=== PATIENT | female | born 1995 | race Caucasian/White ===

== ENCOUNTER 2024-05-30 05:14 | Emergency (ER) | payer BC ==
[2024-05-30] MEDS: Metoclopramide 10 MG/2 ML SDV IVPUSH ONE (05:53)
[2024-05-30] MEDS: Dextrose 5%-0.9% NaCl 1,000 ML IV SCH (05:53)
[2024-05-30] MEDS: HYDROmorphone 0.5 MG/0.5 ML Syringe IVPUSH ONE (05:54)
[2024-05-30] MEDS: Ketorolac 30 MG/ML SDV IVPUSH ONE (05:54)
[2024-05-30] MEDS ORDERED: Sodium Chloride 0.9% 1,000 ML IV SCH (06:00)
[2024-05-30 06:08] LABS: BASOPHILS PERCENT AUTO 0.4 % (0.0-1.0); EOSINOPHILS ABSOLUTE AUTO 0.1 K/mm3 (0.0-0.4); EOSINOPHILS PERCENT AUTO 1.9 % (0.0-6.0); HEMATOCRIT 44.5 % (37.0-47.0); HEMOGLOBIN 15.4 gm/dl (12.0-16.0); LYMPHOCYTES ABSOLUTE AUTO 3.2 K/mm3 (1.0-4.8); LYMPHOCYTES PERCENT AUTO 61.1 % (24.0-44.0); MEAN CORPUSCULAR HEMOGLOBIN 32.2 pg (28.0-32.0); MEAN CORPUSCULAR HGB CONC 34.6 g/dl (32.0-36.0); MEAN CORPUSCULAR VOLUME 93.1 fl (83.0-99.0); MEAN PLATELET VOLUME 9.1 fl (9.4-12.3); MONOCYTES ABSOLUTE AUTO 0.4 K/mm3 (0.0-0.8); MONOCYTES PERCENT AUTO 7.4 % (0.0-8.0); NEUTROPHILS ABSOLUTE AUTO 1.6 K/mm3 (1.8-7.7); NEUTROPHILS PERCENT AUTO 29.2 % (41.0-71.0); PLATELET COUNT,PLT 118 K/mm3 (150-400); RED BLOOD CELL COUNT 4.78 M/mm3 (4.10-5.30)
[2024-05-30 06:12] LABS: APPEARANCE,URINE SLT CLOUDY (Clear); BILIRUBIN,URINE NEGATIVE (Negative); COLOR,URINE YELLOW (Yellow); GLUCOSE,URINE NEGATIVE (Negative); KETONES,URINE NEGATIVE (Negative); LEUKOCYTE ESTERASE,URINE TRACE (Negative); NITRITE,URINE NEGATIVE (Negative); OCCULT BLOOD,URINE 1+ (Negative); PROTEIN,URINE 1+ (Negative); UROBILINOGEN,URINE 0.2 (0.2-1.0)
[2024-05-30 06:31] LABS: EPITHELIAL CELLS,URINE 0-5 /hpf (0-5)
[2024-05-30 06:32] LABS: BACTERIA,URINE MANY /hpf (FEW); MUCUS,URINE RARE /hpf (FEW)
[2024-05-30] MEDS: Linezolid 600 MG in Premix Bag 1 BAG IV ONE (06:57)
[2024-05-30 07:08] LABS: A/G RATIO 1.1 (1-2); ALBUMIN 4.5 g/dl (3.4-5.0); BILIRUBIN TOTAL 0.6 mg/dL (0.2-1.0); BUN/CREATININE RATIO 12.2 (14-18); C-REACTIVE PROTEIN 0.05 mg/dL (<0.30); CALCIUM 9.1 mg/dL (8.5-10.1); CREATININE 0.9 mg/dL (0.55-1.02); EST CRCL DRUG DOSING (CG) 78.36 mL/min; PROTEIN TOTAL,TP 8.8 g/dl (6.4-8.2)
== END 2024-05-30 08:10 | disposition home or self-care (01) ==
LOC: JD.ED 05:14
DX: O23.43 Unspecified infection of urinary tract in pregnancy, third trimester (principal); O26.833 Pregnancy related renal disease, third trimester; N20.0 Calculus of kidney; Z88.0 Allergy status to penicillin; Z88.5 Allergy status to narcotic agent; Z3A.35 35 weeks gestation of pregnancy
CPT/HCPCS: 36415; 74176; 74176-26; 80053; 81001; 83036; 84703; 85025; 86140; 87086; 96361; 96365; 96375; 99285-25; J1885; J2020; J2765; J7042

== ENCOUNTER 2024-07-27 00:30 | Observation (INO) | payer BC ==
[2024-07-27 02:38] LABS: BASOPHILS PERCENT AUTO 0.4 % (0.0-1.0); EOSINOPHILS ABSOLUTE AUTO 0.2 K/mm3 (0.0-0.4); EOSINOPHILS PERCENT AUTO 2.6 % (0.0-6.0); HEMATOCRIT 39.9 % (37.0-47.0); HEMOGLOBIN 13.6 gm/dl (12.0-16.0); IMMATURE GRAN ABSOLUTE AUTO 0.01 K/mm3 (0.00-0.05); IMMATURE GRAN PERCENT AUTO 0.1 % (0.0-0.4); LYMPHOCYTES ABSOLUTE AUTO 3.6 K/mm3 (1.0-4.8); LYMPHOCYTES PERCENT AUTO 49.7 % (24.0-44.0); MEAN CORPUSCULAR HEMOGLOBIN 33.7 pg (28.0-32.0); MEAN CORPUSCULAR HGB CONC 34.1 g/dl (32.0-36.0); MEAN CORPUSCULAR VOLUME 98.8 fl (83.0-99.0); MEAN PLATELET VOLUME 9.4 fl (9.4-12.3); MONOCYTES ABSOLUTE AUTO 0.5 K/mm3 (0.0-0.8); MONOCYTES PERCENT AUTO 7.3 % (0.0-8.0); NEUTROPHILS ABSOLUTE AUTO 2.9 K/mm3 (1.8-7.7); NEUTROPHILS PERCENT AUTO 39.9 % (41.0-71.0); PLATELET COUNT,PLT 148 K/mm3 (150-400); RED BLOOD CELL COUNT 4.04 M/mm3 (4.10-5.30); WHITE BLOOD CELL COUNT,WBC 7.27 K/mm3 (3.9-11.3)
[2024-07-27 02:44] LABS: A/G RATIO 1.1 (1-2); ALBUMIN 4.2 g/dl (3.4-5.0); ANION GAP 12.5 (5-15); BILIRUBIN TOTAL 0.3 mg/dL (0.2-1.0); BUN/CREATININE RATIO 22.5 (14-18); CALCIUM 8.6 mg/dL (8.5-10.1); CREATININE 0.8 mg/dL (0.55-1.02); EST CRCL DRUG DOSING (CG) 92.02 mL/min; POTASSIUM,K 3.5 mEq/L (3.5-5.1); PROTEIN TOTAL,TP 8.1 g/dl (6.4-8.2)
[2024-07-27 03:24] LABS: APPEARANCE,URINE SLT CLOUDY (Clear); BILIRUBIN,URINE NEGATIVE (Negative); COLOR,URINE YELLOW (Yellow); GLUCOSE,URINE NEGATIVE (Negative); KETONES,URINE NEGATIVE (Negative); LEUKOCYTE ESTERASE,URINE NEGATIVE (Negative); NITRITE,URINE NEGATIVE (Negative); OCCULT BLOOD,URINE 1+ (Negative); PROTEIN,URINE NEGATIVE (Negative); UROBILINOGEN,URINE 0.2 (0.2-1.0)
[2024-07-27 03:45] LABS: BACTERIA,URINE FEW /hpf (FEW); CALCIUM OXALATE CRYSTALS,URINE FEW; MUCUS,URINE FEW /hpf (FEW); WBC,URINE 0-5 /hpf (0-5)
[2024-07-27 03:46] LABS: AMORPHOUS SEDIMENT,URINE MANY /hpf (NOT SEEN)
[2024-07-27] MEDS: Ondansetron 4 MG/2 ML SDV IVPUSH ONE (04:13)
[2024-07-27] MEDS: Ketorolac 15 MG/ML SDV IVPUSH ONE (04:13)
[2024-07-27] MEDS ORDERED: Naloxone 0.4 MG/ML SDV IVPUSH PRN (05:15)
[2024-07-27] MEDS: HYDROmorphone 0.5 MG/0.5 ML Syringe IVPUSH ONE (05:27)
[2024-07-27] MEDS: metroNIDAZOLE/Normal Saline 500 MG in Premix Bag 1 BAG IV ONE (05:30)
[2024-07-27] MEDS: cefTRIAXone 500 MG Vial IVPUSH ONE (05:38)
[2024-07-27] MEDS: Lactated Ringers 1,000 ML IV SCH ×2 (06:31→18:14)
[2024-07-27] MEDS ORDERED: fentaNYL 250 MCG/5 ML SDV ONE (09:48)
[2024-07-27] MEDS ORDERED: Midazolam 1 MG/ML 2 ML SDV ONE (09:48)
[2024-07-27] MEDS ORDERED: Propofol 200 MG/20 ML SDV ONE (09:48)
[2024-07-27] MEDS ORDERED: Rocuronium 50 MG/5 ML Vial ONE (09:49)
[2024-07-27] MEDS ORDERED: Dexamethasone 4 MG/ML 5 ML MDV ONE (09:49)
[2024-07-27] MEDS ORDERED: Ondansetron 4 MG/2 ML SDV ONE (09:49)
[2024-07-27] MEDS ORDERED: Lidocaine 1% 5 ML VIAL ONE (09:49)
[2024-07-27] MEDS: Heparin Sodium 5,000 Units/ML Vial SUBCUT ONE (10:13)
[2024-07-27] MEDS: Ketorolac 30 MG/ML SDV IVPUSH SCH (12:51)
[2024-07-27] MEDS: Heparin Sodium 5,000 Units/ML Vial SUBCUT SCH (18:13)
[2024-07-27] MEDS: metroNIDAZOLE/Normal Saline 500 MG in Premix Bag 1 BAG IV SCH (21:05)
[2024-07-27] MEDS: Sodium Chloride 0.9% 1,000 ML IV SCH (21:08)
[2024-07-28] MEDS: metroNIDAZOLE/Normal Saline 100 ML ONE (04:21)
[2024-07-28] MEDS: cefTRIAXone 1 GM in Water For Injection, Sterile 10 ML IV SCH (05:40)
[2024-07-28] MEDS ORDERED: fentaNYL 250 MCG/5 ML SDV ONE (08:10)
[2024-07-28] MEDS ORDERED: Propofol 200 MG/20 ML SDV ONE (08:10)
[2024-07-28] MEDS ORDERED: Midazolam 1 MG/ML 2 ML SDV ONE (08:10)
[2024-07-28] MEDS ORDERED: Dexamethasone 4 MG/ML 5 ML MDV ONE (08:12)
[2024-07-28] MEDS ORDERED: Rocuronium 50 MG/5 ML Vial ONE (08:12)
[2024-07-28] MEDS ORDERED: Lidocaine 1% 5 ML VIAL ONE (08:12)
[2024-07-28] MEDS ORDERED: Ondansetron 4 MG/2 ML SDV ONE (08:12)
[2024-07-28] MEDS ORDERED: Ketamine 200 MG/20 ML MDV ONE (08:51)
[2024-07-28] MEDS ORDERED: HYDROmorphone 0.5 MG/0.5 ML Syringe ONE (08:56)
[2024-07-28] MEDS ORDERED: Sugammadex Sodium 200 MG/2 ML VIAL IV ONE (09:19)
[2024-07-28] MEDS: Iopamidol 612 MG/ML 30 ML SDV ONE (10:08)
[2024-07-28] MEDS: HYDROmorphone 0.5 MG/0.5 ML Syringe IVPUSH PRN (11:19)
[2024-07-28] MEDS: fentaNYL 100 MCG/2 ML SDV IVPUSH PRN (11:29)
[2024-07-28] MEDS: Ketorolac 30 MG/ML SDV IVPUSH ONE (11:45)
[2024-07-28] MEDS: Ondansetron 4 MG/2 ML SDV IVPUSH PRN (12:40)
[2024-07-28] MEDS: Morphine 2 MG/ML SYRINGE IVPUSH PRN (14:43)
[2024-07-28] MEDS: Ondansetron 4 MG/2 ML SDV IVPUSH ONE (16:37)
[2024-07-28] MEDS: Acetaminophen/oxyCODONE 325-5 MG Tab PO PRN (16:37)
[2024-07-28] MEDS: Ondansetron 4 MG Tab.DIS PO PRN (20:45)
[2024-07-29] MEDS ORDERED: cefTRIAXone 1 GM Vial IVPUSH SCH (05:30)
== END 2024-07-29 08:22 | disposition home or self-care (01) ==
LOC: JD.ED 00:30 → JD.MS 05:03
PROVIDERS: ADMIT Surgery; ATTEND Surgery
DX: K80.66 Calculus of gallbladder and bile duct with acute and chronic cholecystitis without obstruction (principal); Z88.5 Allergy status to narcotic agent; Z88.0 Allergy status to penicillin
CPT/HCPCS: 36415; 47563; 76000; 76705; 80053; 81001; 81025; 83690; 85025; 96361; 96365; 96366; 96372; 96375; 96376; 99285; A9270; G0378; J0696; J1100; J1171; J1644; J1836; J1885; J2250; J2270; J2405; J2704; J3010; J3490; J7030; J7120; Q9967; 00790